=== PATIENT | female | born 1970 | race Caucasian/White ===

== ENCOUNTER → 2019-10-19 13:05 | Outpatient (CLI) | payer BC, SELFPAY ==
--- NOTE | 2019-10-19 13:13 | XR_ITS ---
PROCEDURE: XR FOOT WT BEARING LT 3V CLINICAL INDICATION: foot pain COMPARISON: No exams were available for comparison FINDINGS: No fracture or dislocation. No lytic or blastic change. There is normal mineralization. There is pes planus osteoarthritic change at the talonavicular joint IMPRESSION: Pes planus with mild osteoarthritis Dictated by: Daron Dupont MD 10/19/2019 16:35 Electronically signed by Daron Dupont MD in [place] 10/19/2019 16:35
--- NOTE | 2019-10-19 13:13 | XR_ITS ---
PROCEDURE: XR FOOT WT BEARING RT 3V CLINICAL INDICATION: pain Pain in the plantar area and ankle the COMPARISON: No exams were available for comparison FINDINGS: No fracture or dislocation. No lytic or blastic change. There is normal mineralization. The joint spaces are well-preserved. No significant degenerative/arthritic changes. No erosive changes evident. Other findings:None. IMPRESSION: Negative right foot Dictated by: Daron Dupont MD 10/19/2019 16:45 Electronically signed by Daron Dupont MD in [place] 10/19/2019 16:46
== END ==
PROVIDERS: PCP Family Medicine; Visit Provider Podiatrist
DX: M79.672 Pain in left foot (principal); M79.671 Pain in right foot
CPT/HCPCS: 73630

== ENCOUNTER → 2020-11-02 10:20 | Outpatient (CLI) | payer BC, SELFPAY ==
--- NOTE | 2020-11-02 10:23 | MM_ITS ---
PROCEDURE: MM DIG SCREENING MAMM BI W/CAD Referring Doctor: Desmond Flynn Patient Age:50Y CLINICAL INDICATION: SCREENING. Baseline study no hormones no new complaints. Family history paternal cousin with breast cancer COMPARISON: No exams were available for comparison baseline exam TECHNIQUE: Standard CC and MLO images were obtained. R2 CAD reviewed. Bilateral digital breast tomosynthesis included. FINDINGS: Moderately dense breast with patchy areas of denser fibroglandular elements and mild asymmetry. However there are no dominant or suspicious masses in either breast and no suspicious calcifications identified .. Bilateral follow-up 1 year recommended the IMPRESSION: Unremarkable/negative baseline mammogram No areas of concern Annual bilateral follow-up 1 year recommended. BI-RAD Category: 1 Negative FOLLOW-UP: 1YR 1 Year Follow-up (A letter has been sent to the patient regarding results of the study.) Dictated by: Adriel Walters MD 11/09/2020 13:35 Adriel Walters MD in [place] 11/09/2020 13:35
== END ==
PROVIDERS: PCP Family Medicine; Visit Provider Family Medicine
DX: Z12.31 Encounter for screening mammogram for malignant neoplasm of breast (principal)
CPT/HCPCS: 77063; 77067